=== PATIENT | female | born 1970 | race Hispanic/Latino ===

== ENCOUNTER 2018-01-08 13:10 | Emergency (ER) | payer SELFPAY ==
[2018-01-08] MEDS ORDERED: Sodium Chloride 0.9% 10 ML Syringe FLUSH PRN (13:19)
[2018-01-08] MEDS: Albuterol/Ipratropium 3.0-0.5 MG/3 ML Neb Soln NEB ONE (13:22)
--- NOTE | 2018-01-08 13:26 | EDM.PDOC ---
ED HPI GENERAL MEDICAL PROBLEM - General Chief Complaint: Fever Stated Complaint: ER Time Seen by Provider: 01/08/18 13:18 Source of Information: Reports: Patient, RN, RN Notes Reviewed History Limitations: Reports: No Limitations - History of Present Illness INITIAL COMMENTS - FREE TEXT/NARRATIVE: Patient presents emergency room at [facility] complaining of chills, fever, and body aches. The patient states that she's been having these symptoms since last Friday. The patient states she has been vomiting a couple times per day. The patient has tried [id number] cold and flu medication without any relief. The patient does smoke cigarettes on a daily basis. The patient states that she has a history of asthma. The patient states she has some short of breath which is mild. The patient complains of lower back pain. The patient denies any UTI symptoms. The patient denies any chest pain. The patient denies any focal neurological deficit. No abdominal pain the patient is trying to stay well-hydrated with good by mouth fluid intake. No close family members or contacts with similar symptoms. Onset Date: 01/04/18 Lower Back Pain Score (Numeric/FACES): 6 - Related Data Allergies Allergy/AdvReac Type Severity Reaction Status Date / Time No Known Allergies Allergy Verified 02/03/16 19:36 Home Meds: Home Meds Phenylephrine/Dm/Acetaminop/Gg [Tylenol Cold & Flu Severe Cplt] 1 each PO ASDIRECTED PRN 02/03/16 [History] Oseltamivir [Tamiflu] 1 cap PO BID 5 Days #10 cap 01/08/18 [Rx] Past Medical History - Past Health History Medical/Surgical History: Denies Medical/Surgical History Social & Family History - Tobacco Use Smoking Status *Q: Current Every Day Smoker Years of Tobacco use: 20 Packs/Tins Daily: 1 - Recreational Drug Use Recreational Drug Use: No ED ROS GENERAL - Review of Systems Review Of Systems: See Below Constitutional: Reports: Fever, Chills, Weakness, Decreased Appetite HEENT: Reports: No Symptoms Respiratory: Reports: Shortness of Breath, Wheezing, Cough, Sputum Cardiovascular: Denies: Chest Pain, Palpitations GI/Abdominal: Reports: Nausea, Vomiting. Denies: Abdominal Pain, Diarrhea Musculoskeletal: Reports: Back Pain Skin: Reports: No Symptoms Neurological: Reports: No Symptoms. Denies: Dizziness, Headache ED EXAM, GENERAL - Physical Exam Exam: See Below General Appearance: Alert, No Apparent Distress Eye Exam: Bilateral Eye: Normal Inspection, PERRL Ears: Normal External Exam, Normal Canal, Normal TMs Ear Exam: Bilateral Ear: TM normal Nose: Normal Inspection Neck: Supple Respiratory/Chest: Decreased Breath Sounds, Rhonchi, Wheezing Cardiovascular: Normal Peripheral Pulses, Tachycardia Peripheral Pulses: 2+: Radial (L), Radial (R) GI/Abdominal: Normal Bowel Sounds, Soft, Non-Tender Back Exam: Normal Inspection Neurological: Alert, Oriented Skin Exam: Warm, Dry, Intact, Normal Color Course - Vital Signs Last Recorded V/S: Last Vital Signs Temp 37.6 C 01/08/18 13:12 Pulse 113 H 01/08/18 13:12 Resp 20 01/08/18 13:12 BP 153/89 H 01/08/18 13:12 Pulse Ox 95 01/08/18 13:12 - Orders/Labs/Meds Orders: Active Orders 24 hr Category Date Time Status RT Aerosol Therapy [RC] ASDIRECTED Care 01/08/18 13:18 Active Chest 2V [CR] Stat Exams 01/08/18 13:21 Taken CULTURE BLOOD [BC] Stat Lab 01/08/18 13:31 Received CULTURE BLOOD [BC] Stat Lab 01/08/18 13:35 Received INFLUENZA A+B AG SCREEN [RM] Stat Lab 01/08/18 14:25 Ordered UA W/MICROSCOPIC [URIN] Stat Lab 01/08/18 13:19 Ordered Sodium Chloride 0.9% [Saline Flush] Med 01/08/18 13:19 Active 10 ml FLUSH ASDIRECTED PRN Blood Culture x2 Reflex Set [OM.PC] Stat Oth 01/08/18 13:18 Ordered Peripheral IV Insertion Adult [OM.PC] Routine Oth 01/08/18 13:19 Ordered Medication Orders Sodium Chloride (Saline Flush) 10 ml FLUSH ASDIRECTED PRN PRN Reason: Keep Vein Open Labs: Laboratory Tests 01/08/18 01/08/18 01/08/18 Range/Units 13:19 13:31 13:31 WBC 7.4 (4.0-10.0) x10^3/uL RBC 4.68 (4.00-5.50) x10^6/uL Hgb 14.2 (12.0-16.0) g/dL Hct 42.9 (33.0-47.0) % MCV 91.7 (78.0-93.0) fL MCH 30.3 (26.0-32.0) pg MCHC 33.1 (32.0-36.0) g/dL RDW Coeff of [place] 13.4 (10.0-15.0) % Plt Count 151 (130-400) x10^3/uL Neut % (Auto) 81.6 H (50.0-80.0) % Lymph % (Auto) 11.5 L (25.0-50.0) % [place] % (Auto) 6.8 (2.0-11.0) % Eos % (Auto) 0.0 (0.0-4.0) % Baso % (Auto) 0.1 L (0.2-1.2) % Sodium 133 L (136-145) mmol/L Potassium 3.7 (3.5-5.1) mmol/L Chloride 95 L (98-107) mmol/L Carbon Dioxide 27 (21-32) mmol/L Anion Gap 14.7 BUN 15 (7-18) mg/dL Creatinine 1.2 H (0.55-1.02) mg/dL Est Cr Clr Drug Dosing TNP Estimated GFR (MDRD) 48 Glucose 118 H (74-106) mg/dL Lactic Acid (0.4-2.0) mmol/L Calcium 8.6 (8.5-10.1) mg/dL C-Reactive Protein 3.2 H (<=0.9) mg/dL Urine Color Yellow (YELLOW) Urine Appearance Clear (CLEAR) Urine pH 5.5 (5.0-8.0) Ur Specific [place] 1.010 Urine Protein 30 H (NEGATIVE) mg/dL Urine Glucose (UA) Negative (NEGATIVE) mg/dL Urine Ketones 15 H (NEGATIVE) mg/dL Urine Occult Blood Trace-intact H (NEGATIVE) Urine Nitrite Negative (NEGATIVE) Urine Bilirubin Negative (NEGATIVE) Urine Urobilinogen 0.2 (0.2) EU/dL Ur Leukocyte Esterase Negative (NEGATIVE) Urine RBC 0-5 (NOT SEEN) /HPF Urine WBC 0-5 (NOT SEEN) /HPF Ur Squamous Epith Cells Few H (NEGATIVE) /HPF Urine Bacteria Rare (NEGATIVE) /HPF Urine Mucus Not seen (NEGATIVE) /LPF 01/08/18 Range/Units 13:31 WBC (4.0-10.0) x10^3/uL RBC (4.00-5.50) x10^6/uL Hgb (12.0-16.0) g/dL Hct (33.0-47.0) % MCV (78.0-93.0) fL MCH (26.0-32.0) pg MCHC (32.0-36.0) g/dL RDW Coeff of [place] (10.0-15.0) % Plt Count (130-400) x10^3/uL Neut % (Auto) (50.0-80.0) % Lymph % (Auto) (25.0-50.0) % [place] % (Auto) (2.0-11.0) % Eos % (Auto) (0.0-4.0) % Baso % (Auto) (0.2-1.2) % Sodium (136-145) mmol/L Potassium (3.5-5.1) mmol/L Chloride (98-107) mmol/L Carbon Dioxide (21-32) mmol/L Anion Gap BUN (7-18) mg/dL Creatinine (0.55-1.02) mg/dL Est Cr Clr Drug Dosing Estimated GFR (MDRD) Glucose (74-106) mg/dL Lactic Acid 1.1 (0.4-2.0) mmol/L Calcium (8.5-10.1) mg/dL C-Reactive Protein (<=0.9) mg/dL Urine Color (YELLOW) Urine Appearance (CLEAR) Urine pH (5.0-8.0) Ur Specific [place] Urine Protein (NEGATIVE) mg/dL Urine Glucose (UA) (NEGATIVE) mg/dL Urine Ketones (NEGATIVE) mg/dL Urine Occult Blood (NEGATIVE) Urine Nitrite (NEGATIVE) Urine Bilirubin (NEGATIVE) Urine Urobilinogen (0.2) EU/dL Ur Leukocyte Esterase (NEGATIVE) Urine RBC (NOT SEEN) /HPF Urine WBC (NOT SEEN) /HPF Ur Squamous Epith Cells (NEGATIVE) /HPF Urine Bacteria (NEGATIVE) /HPF Urine Mucus (NEGATIVE) /LPF Meds: Medications Generic Name Dose Route Start Last Admin Trade Name Freq PRN Reason Stop Dose Admin Sodium Chloride 10 ml 01/08/18 13:19 Saline Flush FLUSH ASDIRECTED PRN Keep Vein Open Discontinued Medications Generic Name Dose Route Start Last Admin Trade Name Flipq PRN Reason Stop Dose Admin Albuterol/Ipratropium 3 ml 01/08/18 13:18 01/08/18 13:22 Duoneb 3.0-0.5 Mg/3 Ml NEB 01/08/18 13:19 3 ml ONETIME ONE Administration Lactated Ringer's 1,000 mls @ 999 mls/hr 01/08/18 13:20 01/08/18 13:41 Ringers, Lactated IV 01/08/18 14:20 999 mls/hr ONETIME ONE Administration - Radiology Interpretation Free Text/Narrative:: CXR: No acute process - see scanned report in EMR Departure - Departure Time of Disposition: 15:02 Disposition: Home, Self-Care 01 Condition: Good Clinical Impression: Influenza B - Discharge Information Prescriptions: Oseltamivir [Tamiflu] 1 cap PO BID 5 Days #10 cap Instructions: Influenza, Adult Referrals: PCP,None [Primary Care Provider] - Forms: ED Department Discharge Additional Instructions: 1. Stay well hydrated and rest 2. Take medication for the full coarse, even if you are feeling better 3. LOT of water 4. May alternate Tylenol/Advil as needed 5. Cover your cough; wash hands frequently 6. See your Primary as symptoms warrant 7. Call us with any questions/concerns - Problem List Review Problem List Initiated/Reviewed/Updated: Yes - My Orders Last 24 Hours: My Active Orders 01/08/18 13:18 RT Aerosol Therapy [RC] ASDIRECTED Blood Culture x2 Reflex Set [OM.PC] Stat 01/08/18 13:19 UA W/MICROSCOPIC [URIN] Stat Sodium Chloride 0.9% [Saline Flush] 10 ml FLUSH ASDIRECTED PRN Peripheral IV Insertion Adult [OM.PC] Routine 01/08/18 13:21 Chest 2V [CR] Stat 01/08/18 13:31 CULTURE BLOOD [BC] Stat 01/08/18 13:35 CULTURE BLOOD [BC] Stat 01/08/18 14:25 INFLUENZA A+B AG SCREEN [RM] Stat - Assessment/Plan Last 24 Hours: My Active Orders 01/08/18 13:18 RT Aerosol Therapy [RC] ASDIRECTED Blood Culture x2 Reflex Set [OM.PC] Stat 01/08/18 13:19 UA W/MICROSCOPIC [URIN] Stat Sodium Chloride 0.9% [Saline Flush] 10 ml FLUSH ASDIRECTED PRN Peripheral IV Insertion Adult [OM.PC] Routine 01/08/18 13:21 Chest 2V [CR] Stat 01/08/18 13:31 CULTURE BLOOD [BC] Stat 01/08/18 13:35 CULTURE BLOOD [BC] Stat 01/08/18 14:25 INFLUENZA A+B AG SCREEN [RM] Stat
[2018-01-08] MEDS: Lactated Ringers 1,000 ML IV ONE (13:41)
[2018-01-08 13:54] LABS: CHLORIDE,CL 95 mmol/L (98-107); SODIUM,NA 133 mmol/L (136-145)
[2018-01-08 14:37] VITALS: BP 153/89
== END 2018-01-08 15:16 | disposition home or self-care (01) ==
LOC: VM.ED 13:10
DX: J10.1 Influenza due to other identified influenza virus with other respiratory manifestations (principal); F17.210 Nicotine dependence, cigarettes, uncomplicated
CPT/HCPCS: 36415; 71046; 80048; 81001; 83605; 85025; 86140; 87040; 87804; 94640; 96360; 99284; J7120

== ENCOUNTER 2021-03-28 16:36 | Emergency (ER) | payer BC ==
[2021-03-28 16:47] VITALS: PULSE 97
[2021-03-28] MEDS ORDERED: Lisinopril 20 MG Tab PO STA (16:52)
--- NOTE | 2021-03-28 16:58 | EDM.PDOC ---
ED HPI GENERAL MEDICAL PROBLEM - General Chief Complaint: Cardiovascular Problem Stated Complaint: DIZZY AND PAIN IN L ARM Time Seen by Provider: 03/28/21 16:45 Source of Information: Reports: Patient - History of Present Illness INITIAL COMMENTS - FREE TEXT/NARRATIVE: Tana is a 51 y/o female who comes to the ER after she was seen by the oral surgeon in [place] and told she had elevated BP. She was advised to follow up with her PCP her BP management or come to the ER. She reports that she has been out of the blood pressure meds "for awhile". First she states a couple weeks. but then reports it being back in July that she had a refill. She also needs to have a physical done by her PCP prior to a mouth lesion resection that she has so she reports that she has made an appt with her PCP, Dr Tricia Paredes. - Related Data Allergies Allergy/AdvReac Type Severity Reaction Status Date / Time No Known Allergies Allergy Verified 03/28/21 16:45 Home Meds: Home Meds Albuterol Sulfate [Albuterol Sulfate Hfa] 2 puff IH Q4HR PRN 03/28/21 [History] Fluticasone Propionate [Flovent HFA] 1 puff INH BID 03/28/21 [History] lisinopriL [Lisinopril] 20 mg PO DAILY #30 tab 03/28/21 [Rx] Past Medical History - Past Health History Medical/Surgical History: Denies Medical/Surgical History Cardiovascular History: Reports: Hypertension Respiratory History: Reports: Asthma, Other (See Below) Other Respiratory History: bronchopneumonia Musculoskeletal History: Reports: Back Pain, Chronic Social & Family History - Tobacco Use Tobacco Use Status *Q: Current Every Day Tobacco User Years of Tobacco use: 20 Packs/Tins Daily: 0.2 ED ROS GENERAL - Review of Systems Review Of Systems: See Below Constitutional: Reports: No Symptoms HEENT: Reports: No Symptoms Respiratory: Reports: No Symptoms Cardiovascular: Reports: No Symptoms Endocrine: Reports: No Symptoms GI/Abdominal: Reports: No Symptoms : Reports: No Symptoms Musculoskeletal: Reports: No Symptoms Skin: Reports: No Symptoms Neurological: Reports: No Symptoms Psychiatric: Reports: No Symptoms Hematologic/Lymphatic: Reports: No Symptoms Immunologic: Reports: No Symptoms ED EXAM, GENERAL - Physical Exam Exam: See Below General Appearance: Alert, WD/WN, No Apparent Distress (Adult female.) Ears: Normal External Exam, Hearing Grossly Normal Throat/Mouth: Normal Inspection, Normal Lips, Normal Voice Head: Atraumatic, Normocephalic Respiratory/Chest: No Respiratory Distress, Lungs Clear, Chest Non-Tender Cardiovascular: Normal Peripheral Pulses, Regular Rate, Rhythm, No Murmur GI/Abdominal: Normal Bowel Sounds, Soft (Female) Exam: Deferred Rectal (Female) Exam: Deferred Back Exam: Normal Inspection Extremities: Normal Inspection, Normal Range of Motion, No Pedal Edema, Normal Capillary Refill Neurological: Alert, Oriented, CN II-XII Intact, No Motor/Sensory Deficits Psychiatric: Normal Affect, Normal Mood Skin Exam: Warm, Dry, Intact, Normal Color Course - Vital Signs Text/Narrative:: 1645 The patient was seen by the PATIENT CARE TECHNICIAN INSTRUCTOR. Her BP on admit was 177/125. Patient then sat and rested and her BP was rechecked and was 149/109. She was given a Lisinopril 20mg po since she has not had her regular HTN meds for a few weeks now. 1725 She was observed and he BP was rechecked. It was trending down and she felt overall better. She was given written instructions and left the ER in stable condition. Last Recorded V/S: Last Vital Signs Temp 36.8 C 03/28/21 16:38 Pulse 97 03/28/21 16:38 Resp 20 03/28/21 16:38 BP 146/106 H 03/28/21 17:28 Pulse Ox 96 03/28/21 16:38 - Orders/Labs/Meds Meds: Medications Discontinued Medications Generic Name Dose Route Start Last Admin Trade Name Mikayla PRN Reason Stop Dose Admin Lisinopril 20 mg 03/28/21 16:52 03/28/21 16:59 Lisinopril 20 Mg Tab PO 03/28/21 16:53 20 mg NOW STA Administration Departure - Departure Time of Disposition: 17:29 Disposition: Home, Self-Care 01 Condition: Good Clinical Impression: Hypertension Qualifiers: Hypertension type: unspecified Qualified Code(s): I10 - Essential (primary) hypertension Prescriptions: lisinopriL [Lisinopril] 20 mg PO DAILY #30 tab Instructions: Hypertension, Adult, [id number] Referrals: Tricia Paredes MD [Primary Care Provider] - Forms: ED Department Discharge Sepsis Event Note (ED) - Evaluation Sepsis Screening Result: No Definite Risk - Focused Exam Vital Signs: Vital Signs Temp Pulse Resp BP BP Pulse Ox 03/28/21 17:28 146/106 H 03/28/21 16:59 149/105 H 03/28/21 16:50 149/105 H 03/28/21 16:38 36.8 C 97 20 177/125 H 96 - Assessment/Plan Assessment:: 1)HTN, uncontrolled Plan: -Lisinopril 20mg daily #30 (Rx). Take your medication daily to control your blood pressure. -Fill this prescription and then see your PCP to get further refills. Your PCP may recommend additional medications. -Make an appt to Dr Tricia Paredes -Return to the ER as needed
[2021-03-28 17:29] VITALS: BP 146/106
== END 2021-03-28 17:34 | disposition home or self-care (01) ==
LOC: VM.ED 16:36
DX: I10 Essential (primary) hypertension (principal); Z72.0 Tobacco use; Z79.899 Other long term (current) drug therapy
CPT/HCPCS: 99283; 99284; A9270-GY

== ENCOUNTER 2021-09-11 03:45 | Emergency (ER) | payer BC ==
[2021-09-11 03:58] VITALS: PULSE 88
[2021-09-11] MEDS ORDERED: Lisinopril 10 MG Tab PO ONE (04:07)
--- NOTE | 2021-09-11 04:13 | EDM.PDOC ---
ED HPI GENERAL MEDICAL PROBLEM - General Chief Complaint: Cardiovascular Problem Stated Complaint: high blood pressure Time Seen by Provider: 09/11/21 03:50 Source of Information: Reports: Patient History Limitations: Reports: No Limitations - History of Present Illness INITIAL COMMENTS - FREE TEXT/NARRATIVE: Patient presents to the emergency room tonight after getting up out of bed to go to the bathroom about 45 minutes ago had a few seconds of felt like her heart was racing and she wanted to come get checked out. She states she has been out of her blood pressure medication lisinopril 20 mg twice daily and Coreg that she does not know the milligram dosage for for about a week. She states she has not been able to see her primary care provider Tricia Toribio to get a refill secondary to work. She also states that her blood pressure had gone down and she did not feel like she needed the medication anymore as well. Patient denies any chest pain palpitations shortness of breath headache vision changes urinary issues no endorgan signs or symptoms. She has no other complaints at this time states she feels fine and wants to be discharged home. She has been seen for chest pain before here in the emergency room and with her primary care provider with a normal work-up. She does continue to smoke Duration: Minutes: Improves with: Reports: Other (time) Worsens with: Reports: None Associated Symptoms: Reports: No Other Symptoms, Other (No near syncopal episodes no vision changes). Denies: Confusion, Chest Pain, Diaphoresis, Headaches, Nausea/Vomiting, Shortness of Breath, Syncope - Related Data Allergies Allergy/AdvReac Type Severity Reaction Status Date / Time No Known Allergies Allergy Verified 03/28/21 16:45 Home Meds: Home Meds Albuterol Sulfate [Albuterol Sulfate Hfa] 2 puff IH Q4HR PRN 03/28/21 [History] Fluticasone Propionate [Flovent HFA] 1 puff INH BID 03/28/21 [History] lisinopriL [Lisinopril] 20 mg PO DAILY #30 tab 03/28/21 [Rx] Past Medical History - Past Health History Medical/Surgical History: Denies Medical/Surgical History Cardiovascular History: Reports: Hypertension Respiratory History: Reports: Asthma, Other (See Below) Other Respiratory History: bronchopneumonia Musculoskeletal History: Reports: Back Pain, Chronic ED ROS GENERAL - Review of Systems Review Of Systems: See Below Constitutional: Reports: No Symptoms HEENT: Reports: No Symptoms Respiratory: Reports: No Symptoms Cardiovascular: Reports: No Symptoms, Blood Pressure Problem, Other (She denies any irregular heartbeat fluttering or any cardiovascular complaints besides the few seconds of heart racing). Denies: Chest Pain, Claudication, Dyspnea on Ex ertion, Edema, Lightheadedness, Orthopnea, Palpitations, PND, Syncope Endocrine: Reports: No Symptoms GI/Abdominal: Reports: No Symptoms : Reports: No Symptoms Musculoskeletal: Reports: No Symptoms Skin: Reports: No Symptoms Neurological: Reports: No Symptoms Psychiatric: Reports: No Symptoms Hematologic/Lymphatic: Reports: No Symptoms Immunologic: Reports: No Symptoms ED EXAM, GENERAL - Physical Exam Exam: See Below Exam Limited By: No Limitations General Appearance: Alert, WD/WN, No Apparent Distress Eye Exam: Bilateral Eye: EOMI, Normal Inspection, PERRL Ears: Normal External Exam, Hearing Grossly Normal Nose: Normal Inspection, Normal Mucosa, No Blood Throat/Mouth: Normal Inspection, Normal Lips, Normal Teeth, Normal Gums, Normal Oropharynx, Normal Voice, No Airway Compromise Head: Atraumatic, Normocephalic Neck: Normal Inspection, Supple, Non-Tender, Full Range of Motion Respiratory/Chest: No Respiratory Distress, Lungs Clear, Normal Breath Sounds, No Accessory Muscle Use, Chest Non-Tender Cardiovascular: Normal Peripheral Pulses, Regular Rate, Rhythm, No Edema, No Gallop, No JVD, No Murmur, No Rub. No: JVD, Tachycardia, Irregularly Irregular Peripheral Pulses: 2+: Carotid (L), Carotid (R), Radial (L), Radial (R) GI/Abdominal: Normal Bowel Sounds, Soft, Non-Tender, No Distention. No: Guarding, Rigid, Rebound, Tender Back Exam: Normal Inspection, Full Range of Motion Extremities: Normal Inspection, Normal Range of Motion, Non-Tender, No Pedal Edema, Normal Capillary Refill Neurological: Alert, Oriented, CN II-XII Intact, Normal Cognition, Normal Gait, No Motor/Sensory Deficits Psychiatric: Normal Affect, Normal Mood Skin Exam: Warm, Dry, Intact, Normal Color, No Rash #1 Interpretation EKG Date: 09/11/21 Time: 04:05 Rhythm: NSR [place]: Normal P-Wave: Present QRS: Normal ST-T: Normal QT: Normal (Negative ST elevation or depression normal EKG) Course - Vital Signs Text/Narrative:: EKG shows normal sinus rhythm no acute findings noted. No lab work was obtained at this time secondary to no endorgan signs or symptoms and the patient has no complaints. I will treat with 20 mg of lisinopril secondary to the patient has been on this medication prior and does not had it for a week. Patient is good with treatment disposition and follow-up with primary care provider. I explained to the patient if anything changes or gets worse she can return here to the emergency room Last Recorded V/S: Last Vital Signs Temp 36.2 C 09/11/21 03:45 Pulse 88 09/11/21 03:45 Resp 22 H 09/11/21 03:45 BP 172/97 H 09/11/21 04:19 Pulse Ox 96 09/11/21 03:45 - Orders/Labs/Meds Meds: Medications Discontinued Medications Generic Name Dose Route Start Last Admin Trade Name Freq PRN Reason Stop Dose Admin Lisinopril 20 mg 09/11/21 04:07 09/11/21 04:19 Lisinopril 10 Mg Tab PO 09/11/21 04:08 20 mg ONETIME ONE Administration Departure - Departure Time of Disposition: 04:30 Disposition: Home, Self-Care 01 Condition: Good Clinical Impression: Noncompliance with medication regimen, Racing heart beat Hypertension Qualifiers: Hypertension type: unspecified Qualified Code(s): I10 - Essential (primary) hypertension Forms: ED Department Discharge Sepsis Event Note (ED) - Evaluation Sepsis Screening Result: No Definite Risk - Focused Exam Vital Signs: Vital Signs Temp Pulse Resp BP BP Pulse Ox 09/11/21 04:19 172/97 H 09/11/21 03:45 36.2 C 88 22 H 172/97 H 96 - Problem List & Annotations (1) Hypertension SNOMED Code(s): 07235273 Code(s): I10 - ESSENTIAL (PRIMARY) HYPERTENSION Status: Acute Qualifiers: Hypertension type: unspecified Qualified Code(s): I10 - Essential (primary) hypertension (2) Noncompliance with medication regimen SNOMED Code(s): 580080553 Code(s): Z91.14 - PATIENT'S OTHER NONCOMPLIANCE WITH MEDICATION REGIMEN Status: Acute (3) Racing heart beat SNOMED Code(s): 2120162 Code(s): R00.0 - TACHYCARDIA, UNSPECIFIED Status: Acute
[2021-09-11 05:08] VITALS: BP 160/98
== END 2021-09-11 05:06 | disposition home or self-care (01) ==
LOC: VM.ED 03:45
DX: I10 Essential (primary) hypertension (principal); R00.2 Palpitations; J45.909 Unspecified asthma, uncomplicated; Z91.14 Patient's other noncompliance with medication regimen; Z79.899 Other long term (current) drug therapy
CPT/HCPCS: 93010; 99283-25; 99284; A9270-GY

== ENCOUNTER 2022-06-02 10:33 | Emergency (ER) | payer BC ==
[2022-06-02 11:20] LABS: CORONAVIRUS COVID-19 NAA INVALID (NEGATIVE); RESPIRATORY SYNCYTIAL VIR NAA INVALID (NEGATIVE)
[2022-06-02 12:01] LABS: CORONAVIRUS COVID-19 NAA NEGATIVE (NEGATIVE); RESPIRATORY SYNCYTIAL VIR NAA NEGATIVE (NEGATIVE)
[2022-06-02] MEDS ORDERED: Take Home: Doxycycline 100 MG Tab, 4 Tab Pack PO ONE (12:04)
[2022-06-02] MEDS ORDERED: Take Home: predniSONE 20 MG, 2 Tab Pack PO ONE (12:04)
[2022-06-02] MEDS ORDERED: Take Home: Doxycycline 100 MG Tab, 4 Tab Pack ONE (12:23)
[2022-06-02 12:32] VITALS: BP 171/125; PULSE 82
== END 2022-06-02 12:25 | disposition home or self-care (01) ==
LOC: VM.ED 10:33
DX: J18.9 Pneumonia, unspecified organism (principal); J45.909 Unspecified asthma, uncomplicated; I10 Essential (primary) hypertension; F17.210 Nicotine dependence, cigarettes, uncomplicated; Z79.899 Other long term (current) drug therapy; Z20.822 Contact with and (suspected) exposure to COVID-19
CPT/HCPCS: 0241U; 71046; 99283; A9270-GY; J7512

== ENCOUNTER 2023-01-07 17:49 | Emergency (ER) | payer SELFPAY ==
[2023-01-07] MEDS ORDERED: Labetalol 20 MG/4 ML Syringe IVPUSH ONE ×3 (18:39→19:59)
[2023-01-07 18:47] LABS: CHLORIDE,CL 103 mmol/L (98-107); SODIUM,NA 142 mmol/L (136-145)
[2023-01-07 18:48] LABS: ANION GAP 13.2 mmol/L (5-15); ESTIMATED GFR 60 mL/min (>=60)
[2023-01-07 23:54] VITALS: BP 152/95; PULSE 76
== END 2023-01-07 20:46 | disposition home or self-care (01) ==
LOC: VM.ED 17:49
DX: I10 Essential (primary) hypertension (principal); Z72.0 Tobacco use; Z79.899 Other long term (current) drug therapy
CPT/HCPCS: 80053; 85025; 96374; 96376; 99284; 99284-25; J3490

== ENCOUNTER 2024-12-23 13:48 | Emergency (ER) | payer OTHER ==
[2024-12-23 14:08] VITALS: BP 172/114; PULSE 99
[2024-12-23] MEDS: Albuterol/Ipratropium 3.0-0.5 MG/3 ML Neb Soln NEB ONE (15:14)
[2024-12-23] MEDS: cefTRIAXone 1 GM, Lidocaine 1% 2.1 ML IM ONE (15:16)
[2024-12-23] MEDS: methylPREDNISolone Sodium Succinate 125 MG/2 ML SDV IM ONE (15:17)
== END 2024-12-23 15:27 | disposition home or self-care (01) ==
LOC: VM.ED 13:48 → SUPCPDRO 13:48 → VM.ED 15:27
DX: J18.9 Pneumonia, unspecified organism (principal); I10 Essential (primary) hypertension; J45.909 Unspecified asthma, uncomplicated; F17.210 Nicotine dependence, cigarettes, uncomplicated; Z79.899 Other long term (current) drug therapy
CPT/HCPCS: 71045; 87428-QW; 94640; 96372; 99284; 99285; A9270-GY; J0696; J2003; J2919